=== PATIENT | female | born 1995 | race African-American/Black ===

== ENCOUNTER 2018-11-27 05:05 | Inpatient (IN) ==
[2018-11-27] MEDS ORDERED: BUTORPHANOL 2 MG/ML VIAL IV PRN (05:14)
[2018-11-27] MEDS ORDERED: ONDANSETRON 4 MG/2 ML VIAL IV PRN (05:14)
[2018-11-27] MEDS ORDERED: OXYTOCIN/LR 20 UNIT/1,000 ML BAG IV SCH (05:30)
[2018-11-27] MEDS: LACTATED RINGERS 1,000 ML IV SCH ×2 (05:35→11:20)
[2018-11-27 05:54] LABS: Basophils % 0.4 % (0.0-0.8); Eosinophils % 0.4 % (0.00-10.9); Hemoglobin 11.1 GM/DL (12.0-16.0); Immature Granulocytes % 0.4 %; Immature Granulocytes Absolute 0.02 #; Lymphocytes # 1.5 10*3/uL (1.4-4.0); Lymphocytes % 29.5 % (21.3-54.2); Mean Corpuscular HGB Conc 31.7 GM/DL (32-36); Mean Corpuscular Volume 91.1 FL (87-102); Mean Platelet Volume 11.8 FL (9.6-12.0); Monocytes % 7.9 % (1.7-12.7); Neutrophils % 61.4 % (38.7-73.9); Platelet Count 155 T/CUMM (130-400); Red Blood Count 3.84 MC/CUMM (3.8-5.5); Red Cell Distribution Width 13.2 % (9.3-17.3); White Blood Count 5.2 T/CUMM (4-12)
[2018-11-27 06:13] LABS: Alanine Aminotransferase 13 U/L (13-56); Albumin 2.4 G/DL (3.4-5.0); Alkaline Phosphatase 217 U/L (45-117); Aspartate Amino Transferase 17 U/L (0-37); Bilirubin,Total < 0.39 MG/DL (0.2-1.0); Blood Urea Nitrogen 7 MG/DL (7-18); Calcium 8.7 MG/DL (8.5-10.1); Glucose 84 MG/DL (74-106); Osmolality,Calculated 273.5 MOS/KG (273-304); Total Protein 6.4 G/DL (6.4-8.3)
[2018-11-27] MEDS ORDERED: NALOXONE 0.4 MG/ML VIAL IV PRN (07:54)
[2018-11-27] MEDS ORDERED: FAMOTIDINE 20 MG/2 ML VIAL IV ONE (07:54)
[2018-11-27] MEDS ORDERED: ONDANSETRON 4 MG/2 ML VIAL IV ONE (07:54)
[2018-11-27] MEDS ORDERED: PROMETHAZINE 25 MG/1 ML VIAL IM ONE (07:54)
[2018-11-27] MEDS ORDERED: hydrOXYzine HCL 25 MG/1 ML VIAL IM PRN (07:54)
[2018-11-27] MEDS ORDERED: CITRIC ACID/SODIUM CITRATE 30 ML UDCUP PO ONE (07:54)
[2018-11-27] MEDS ORDERED: ePHEDrine 50 MG/ML AMP IV PRN (07:54)
[2018-11-27] MEDS ORDERED: diphenhydrAMINE 50 MG/1 ML VIAL IV PRN ×2 (07:54)
[2018-11-27] MEDS ORDERED: fentaNYL 2 MCG/ROPIV 0.2% EPID 100 ML EPIDURAL SCH (08:00)
[2018-11-27 11:50] LABS: Apearance,Urine CLEAR (Clear); Bilirubin,Urine Negative (Negative); Blood, Urine Negative (Negative); Glucose,Urine (UA) Negative (Negative); Ketones,Urine Negative (Negative); Mucus,Urine Occasional /LPF (Occasional); Nitrite,Urine Negative (Negative); Protein,Urine Negative; RBC,Urine 1 /HPF (0-4); Squamous Epithelial Cell,Urine Occasional /HPF (0-10); Urine Color Yellow (Yellow); Urine Specific Gravity 1.012 (1.001-1.035); Urine Urobilinogen < 2.0 EU/DL (0.2-1.0); WBC,Urine 1 /HPF (0-6)
[2018-11-27] MEDS ORDERED: METHYLERGONOVINE 0.2 MG/1 ML AMP ONE (14:27)
[2018-11-27] MEDS ORDERED: miSOPROStol 200 MCG TABLET ONE (14:27)
[2018-11-27] MEDS ORDERED: CARBOPROST TROMETHAMINE 250 MCG/ML AMP IM ONE (14:28)
[2018-11-27] MEDS ORDERED: RHO(D) IMMUNE GLOBULIN 300 MCG SYRINGE IM ONE (17:48)
[2018-11-27] MEDS ORDERED: LANOLIN 50% CREAM 0.3 OZ TUBE TOP PRN (17:48)
[2018-11-27] MEDS ORDERED: oxyCODONE/ACETAMINOPHEN 5-325 MG TABLET PO PRN (17:48)
[2018-11-27] MEDS ORDERED: DIPH/TET/ACEL PERT BOOSTER VACCINE 0.5 ML VIAL IM ONE (17:48)
[2018-11-27] MEDS ORDERED: BENZOCAINE 20%/MENTHOL 0.5% SPRAY 56 GM CAN TOP PRN (17:48)
[2018-11-27] MEDS ORDERED: MEASLES/MUMPS/RUBELLA VACCINE 0.5 ML VIAL SUBCUT ONE (17:48)
[2018-11-27] MEDS ORDERED: WITCH HAZEL PADS 100/JAR TOP PRN (17:48)
[2018-11-27] MEDS ORDERED: DOCUSATE/SENNA 50-8.6 MG TABLET PO PRN (17:48)
[2018-11-27] MEDS ORDERED: BISACODYL 10 MG SUPP RECTAL PRN (17:48)
[2018-11-27] MEDS ORDERED: OXYTOCIN/LR 20 UNIT/1,000 ML BAG IV ONE (17:48)
[2018-11-27] MEDS ORDERED: ACETAMINOPHEN 325 MG TABLET PO PRN (17:48)
[2018-11-27] MEDS ORDERED: HYDROCORTISONE 2.5% RECTAL CREAM 30 GM TUBE TOP PRN (17:48)
[2018-11-27] MEDS: oxyCODONE/ACETAMINOPHEN 5-325 MG TABLET PO PRN (19:41)
[2018-11-27] MEDS: IBUPROFEN 800 MG TABLET PO PRN (20:48)
[2018-11-27] MEDS: FERROUS SULFATE 325 MG TABLET PO SCH (20:49)
[2018-11-27] MEDS: DOCUSATE SODIUM 100 MG CAPSULE PO SCH (20:49)
[2018-11-28 04:56] LABS: Basophils % 0.3 % (0.0-0.8); Eosinophils % 0.1 % (0.00-10.9); Hematocrit 35.4 VOL% (35.7-47.0); Hemoglobin 11.3 GM/DL (12.0-16.0); Immature Granulocytes % 0.6 %; Immature Granulocytes Absolute 0.07 #; Lymphocytes # 1.7 10*3/uL (1.4-4.0); Lymphocytes % 15.5 % (21.3-54.2); Mean Corpuscular HGB Conc 31.9 GM/DL (32-36); Mean Platelet Volume 12.3 FL (9.6-12.0); Monocytes % 6.4 % (1.7-12.7); Neutrophils % 77.1 % (38.7-73.9); Platelet Count 151 T/CUMM (130-400); Red Blood Count 3.89 MC/CUMM (3.8-5.5); Red Cell Distribution Width 13.2 % (9.3-17.3); White Blood Count 11.3 T/CUMM (4-12)
[2018-11-28] MEDS: IBUPROFEN 800 MG TABLET PO PRN ×2 (08:46→17:53)
[2018-11-28] MEDS: FERROUS SULFATE 325 MG TABLET PO SCH ×3 (09:47→21:16)
[2018-11-28] MEDS: DOCUSATE SODIUM 100 MG CAPSULE PO SCH ×2 (09:47→21:16)
[2018-11-28] MEDS: MULTIVITAMIN (PRENATAL) TABLET PO SCH (09:47)
[2018-11-28] MEDS: oxyCODONE/ACETAMINOPHEN 5-325 MG TABLET PO PRN (14:54)
[2018-11-29 07:40] VITALS: BP 107/67
[2018-11-29] MEDS: DOCUSATE SODIUM 100 MG CAPSULE PO SCH (09:03)
[2018-11-29] MEDS: MULTIVITAMIN (PRENATAL) TABLET PO SCH (09:03)
[2018-11-29] MEDS: FERROUS SULFATE 325 MG TABLET PO SCH (09:03)
== END 2018-11-29 11:40 | disposition home or self-care (01) | DRG 807 ==
LOC: N.LDOUT 05:05 → N.LD 05:07 → N.OB 20:40
PROVIDERS: ADMIT Obstetrics & Gynecology; ATTEND Obstetrics & Gynecology